=== PATIENT | female | born 2005 | race Caucasian/White ===

== ENCOUNTER 2024-08-20 23:43 | Emergency (ER) | payer BC, SELFPAY ==
[2024-08-20 23:47] VITALS: BP 118/80
--- NOTE | 2024-08-21 03:00 | ED.GENMED ---
History of Present Illness
General
Chief Complaint: Chest Pain
Source: patient and family
Time Seen by Provider: 08/21/24 02:45
History of Present Illness
History of Present Illness:
This a pleasant 19-year-old female that presents to the emergency department with reproducible chest pain. She states that the symptoms began shortly after doing a handstand. She states that the pain begins when she turns her torso. She is
concerned because she does have a history of anxiety and feels that this chest pain is causing her to have panic attacks. She is accompanied by her mom who also states that there is a family history of AAA. Patient states that she has no abdominal
pain. She has no difficulty breathing. She has no pain while at rest. She states that her only pain is when she twists her torso. Denies fever or chills.
Past History
Social History
Tobacco: Non-smoker
Alcohol: None
Drug: None
Review of Systems
Review of Systems
All Other Systems: Not applicable
Constitutional: Reports no symptoms
EENT: Reports no symptoms
Respiratory: Reports no symptoms
Cardiac: Reports chest pain
ABD/GI: Reports no symptoms
: Reports no symptoms
Musculoskeletal: Reports no symptoms
Skin: Reports no symptoms
Neurological: Reports no symptoms
Endocrine: Reports no symptoms
Hematologic/Lymphatic: Reports no symptoms
Psychiatric: Reports no symptoms
Phy Exam
General Physical Exam
General Presentation: well appearing and no apparent distress
General Skin: warm and dry
General Habitus: normal
General Mental: alert
General Hydration: appears well hydrated
ENT Exam
ENT Exam: EOMI, pharynx normal, neck supple and normocephalic
Eye Exam
Eye Exam: PERRL, cornea clear and conjunctiva normal
Cardiovascular Exam
Cardiovascular Exam: regular rate/rhythm, no edema, no murmur and normal peripheral pulses
Pulmonary Exam
Pulmonary Exam: lungs clear, no respiratory distress, no rales, no crackles, no rhonchi, no stridor, no wheezing and no cough
Gastrointestinal Exam
Gastrointestinal Exam: normal bowel sounds, non tender, soft, no organomegaly, no pulsatile mass and non distended
Neurological Exam
Neurological Exam: alert, oriented x3, no motor deficits and speech normal
Musculoskeletal Exam
Musculoskeletal Exam: full ROM and no edema
Skin Exam
Skin Exam: normal color, warm/dry, no rash and no petechia
Psychiatric Exam
Psychiatric Exam: normal mood/affect
Course
Orders/Labs/Results
Orders:
Orders
08/20/24 23:55
EKG [Electrocardiogram (*1)] Urgent
Reason for Study: Chest Pain
EKG- Treatment ONCE
Vital Signs
Initial and Last Documented VS:
Initial Vital Signs
Temp Pulse Resp BP Pulse Ox
98.9 F 94 14 118/80 100
08/20/24 23:47 08/20/24 23:47 08/20/24 23:47 08/20/24 23:47 08/20/24 23:47
Last Documented Vital Signs
Temp Pulse Resp BP Pulse Ox
98.9 F 94 14 118/80 100
08/20/24 23:47 08/20/24 23:47 08/20/24 23:47 08/20/24 23:47 08/20/24 23:47
*Critical Care Note
Total Time (30-74mins, 75-104mins- exclusive of procedures): Not Applicable
Update Note
Update Note:
EKG shows normal sinus rhythm rate of 100 and normal intervals, normal axis, no evidence of acute ischemia present. Patient admits that EKG was taken during an episode of panic. On the monitor she is in normal sinus rhythm with a rate of 60 while
at rest.
I explained to her that the EKG appeared normal except for the slightly elevated rate. She stated that she felt reassured by the EKG. I offered blood work in the situation including cardiac testing and a D-dimer. She and mom absolutely refused
to stating that 'they were really here for the EKG'. Mom rationalize that they will return if the symptoms worsen. They would like to try Tylenol and Motrin at home. They have an appointment with a family doctor in the morning to get on anxiety
medications. They do understand that a missed diagnosis is possible without lab work.
ED Attending Note
-
Portions of this chart may have been created with voice recognition software.� Occasional wrong word or��sound alike� substitutions may have occurred due to the inherent limitations of voice recognition software.
Discharge Plan
Departure
Patient Disposition: Home (Routine Discharge)
Date of Disposition: 08/21/24
Time of Disposition: 03:06
Patient with high blood pressure during this ER visit?: Yes
Discharge Problem:
Chest pain
Instructions: Chest pain, Chest Pain PCP Follow Up
Prescriptions:
No Action
ondansetron 4 MG tablet,disintegrating
4 mg PO TIDPRN PRN (Reason: nausea/vomiting) Qty: 14 0RF
Activity Restrictions/Additional Instructions:
It was a pleasure meeting you and taking part in your care. We hope for your continued healing and wellness.
Please read discharge instructions in their entirety. However, they are for general education and may not describe your exact diagnosis at discharge. Information on your ER visit and medical conditions were discussed with you along with appropriate
follow up information...
If indicated, please take your medications as instructed and indicated on discharge paperwork.
Please schedule a follow up appointment as directed. Call to schedule an appointment
Please return to the emergency department with ANY change in, persisting, or worsening of symptoms. If any of your symptoms do not improve, or persist, or become more severe within 6-12 hours, please return to the emergency department for further
care.
Please return to the emergency department if you develop a headache, neck pain/stiffness, fever greater than 100.4F, chest pain, shortness of breath, persistent nausea, vomiting, slurred speech, difficulty walking, numbness/tingling, weakness, signs
of infection or any other symptoms that are worrisome to you.
If you have any questions or concerns please do not hesitate to call the Hospital at or E-mail me directly at [email or web address]
Interventions
Interventions:
*Risk Screen - Suicide Last Done: 08/20/24 23:47
*General Assessment Last Done: 08/20/24 23:47
*Neglect/Abuse Screening Last Done: 08/20/24 23:47
Discharge Date and Time
Print Language: SCOTTISH
== END 2024-08-21 04:00 | disposition home or self-care (01) ==
LOC: EMR 23:43
PROVIDERS: EMERGENCY PHYSICIAN Student in an Organized Health Care Education/Training Program
DX: R07.89 Other chest pain (principal)
CPT/HCPCS: 99283; 93005